=== PATIENT | female | born 1995 ===

== ENCOUNTER 2025-06-07 10:51 | Inpatient (IN) | payer OTHER ==
[~2025-06-07] VITALS: Ht 167.6 cm; Wt 78.9 kg
[2025-06-07] MEDS ORDERED: RINGERS SOLUTION,LACTATED 1,000 ML IV SCH (11:00)
[2025-06-07] MEDS ORDERED: OXYTOCIN 500 ML IV SCH (11:00)
[2025-06-07] MEDS ORDERED: MORPHINE SULFATE 4 MG/ML VIAL IV PRN (11:00)
[2025-06-07 11:32] VITALS: BP 109/64
[2025-06-07] MEDS ORDERED: PRENATA CHEWAB1 EACH PO (12:06)
[2025-06-07] MEDS ORDERED: DIALYVITE 800-1 EACH PO (12:07)
[2025-06-07 12:08] LABS: BASO % 0.4 % (0.1-1.2); EOS # 0.04 (0.04-0.54); EOS % 0.4 % (0.7-7.0); LYMPH # 2.00 (1.18-3.74); LYMPH % 18.1 % (19.3-53.1); MEAN PLATELET VOLUME 10.40 fl (9.4-12.4); MONO # 0.80 (0.24-0.82); MONO % 7.2 % (4.7-12.5); NEUT # 8.11 (1.56-6.13); NEUT % 73.4 % (34.0-71.1); RED CELL DISTRIBUTION WIDTH 12.5 % (11.6-14.4)
[2025-06-07 12:20] LABS: URINE APPEARANCE Clear; URINE BILIRRUBIN Negative (NEGATIVE); URINE BLOOD Negative; URINE COLOR Yellow; URINE GLUCOSE Negative (NEGATIVE); URINE KETONE Negative (NEGATIVE); URINE LEUKOCYTE Small; URINE NITRATE Negative; URINE PROTEIN Negative (NEGATIVE); URINE UROBILINOGEN 1.0 E.U./dl
[2025-06-07 12:23] LABS: URINE BACTERIA 54.8 uL (0.0-1933); URINE EPITHELIAL CELLS 8.5 uL (0.0-38.8); URINE RBC 2.2 uL (0.0-20.8); URINE WBC 6.1 uL (0.0-23.2)
[2025-06-07 12:56] LABS: URINE CAST 0.28 uL (0.0-1.40)
[2025-06-07 13:04] LABS: INR 0.95
[2025-06-07 13:09] LABS: ALT/SGPT 51.0 U/L (12-78); AST/SGOT 31.0 U/L (15-37); BILIRUBIN TOTAL 0.9 mg/dL (0.3-1.2); BUN CREA RATIO 12.0 (7.0-25.0); CREATININE SERUM 0.57 mg/dL (0.55-1.02); GFR 122.92; GLOBULINA 3.7 G/DL (2.4-3.5); GLUCOSE FASTING 79.0 mg/dL (65-100); OSMOLALITY SERUM 278.0 MOSM/KG (275-295)
[2025-06-07] MEDS ORDERED: CHLORHEXIDINE GLUCONATE 120 ML BOTTLE TOP ONE ×2 (15:06→19:15)
[2025-06-07] MEDS ORDERED: ERYTHROMYCIN BASE OPHT 1GM EACH TUBE OP ONE (15:06)
[2025-06-07] MEDS ORDERED: LIDOCAINE HCL 1% 10ML VIAL ONE (15:06)
[2025-06-07] MEDS ORDERED: OXYTOCIN 20 UNITS/1000ML RL PIGGYBAG IV ONE (15:06)
[2025-06-07 15:54] VITALS: BP 96/50
[2025-06-07 16:16] VITALS: BP 100/45
[2025-06-07 16:31] VITALS: BP 114/40
[2025-06-07 16:46] VITALS: BP 116/54
[2025-06-07] MEDS ORDERED: OXYTOCIN 1,000 ML IV ONE (19:15)
[2025-06-07 19:28] VITALS: BP 105/66
[2025-06-08 01:25] VITALS: BP 95/60
[2025-06-08 05:11] LABS: BASO % 0.3 % (0.1-1.2); EOS # 0.08 (0.04-0.54); EOS % 0.4 % (0.7-7.0); LYMPH # 2.98 (1.18-3.74); LYMPH % 15.3 % (19.3-53.1); MEAN PLATELET VOLUME 10.00 fl (9.4-12.4); MONO # 1.48 (0.24-0.82); MONO % 7.6 % (4.7-12.5); NEUT # 14.81 (1.56-6.13); NEUT % 75.8 % (34.0-71.1); RED CELL DISTRIBUTION WIDTH 12.2 % (11.6-14.4)
[2025-06-08] MEDS ORDERED: PNV,CALCIUM 72/IRON/FOLIC ACID 1 TAB TABLET PO SCH (09:00)
[2025-06-08] MEDS ORDERED: DOCUSATE SODIUM 100MG CAP PO SCH (09:00)
[2025-06-08 09:07] VITALS: BP 120/71
[2025-06-08 19:16] VITALS: BP 104/66
[2025-06-09] VITALS: BP 105/60
[2025-06-09 08:16] VITALS: BP 118/67
== END 2025-06-09 18:30 | disposition home or self-care (01) | DRG 807 ==
LOC: LDR 10:51 → OB/GYN 10:51
PROVIDERS: ADMIT Obstetrics & Gynecology Gynecology; ATTEND Obstetrics & Gynecology Gynecology
PROC: 10E0XZZ Delivery of Products of Conception, External Approach (ICD-10-PCS; principal; 2025-06-07)
PROC: 0HQ9XZZ Repair Perineum Skin, External Approach (ICD-10-PCS; 2025-06-07)
PROC: 0UQMXZZ Repair Vulva, External Approach (ICD-10-PCS; 2025-06-07)
PROC: 4A1HXCZ Monitoring of Products of Conception, Cardiac Rate, External Approach (ICD-10-PCS; 2025-06-07)
DX: O70.0 First degree perineal laceration during delivery (principal); Z37.0 Single live birth; O71.82 Other specified trauma to perineum and vulva; Z3A.38 38 weeks gestation of pregnancy